=== PATIENT | male | born 1950 | race Caucasian/White ===

== ENCOUNTER → 2018-06-17 | Outpatient (CLI) | payer MEDICARE ==
--- NOTE | 2018-06-17 11:12 | RADIOLOGY IMAGING REPORT ---
FACILITY: [facility] PATIENT NAME: Kushal Butcher : 1950 MR: [id number] V: [id number] EXAM DATE: ORDERING PHYSICIAN: ELKE LAST TECHNOLOGIST: [place] [facility] [place] : 1950 Visit/Account:[id number] Date of Sevice: 06/17/2018 Right upper abdomen ultrasound. HISTORY: Right upper quadrant pain. COMPARISON: None. The liver measures 10.5 sagittal length. The liver is free of focal defects. The surface of the live r is smooth. The portal vein is patent. No intra or extrahepatic biliary dilatation. The gallbladder is unremarkable. The sonographic Green's sign is negative. The pancreas is unremarkable. The right k idney is normal in size. No hydronephrosis. No ascites. Portions of the abdominal aorta and inferior vena cava are obscured. The spleen and left kidney were not included. The common bile duct measures 2.8 mm in greatest AP diameter. IMPRESSION: Negative right upper abdomen. Report Dictated By: Aguilar Mcclelland MD at 06/17/2018 11:06 AM Report E-Signed By: Aguilar Mcclelland MD at 06/17/2018 11:07 AM WSN:[id number]
== END ==
LOC: US 09:19
PROVIDERS: ATTEND Nurse Practitioner Psychiatric/Mental Health
DX: R10.11 Right upper quadrant pain (principal)
CPT/HCPCS: 76705